=== PATIENT | female | born 1970 | race Caucasian/White ===

== ENCOUNTER 2017-08-22 19:44 | Emergency (ER) | payer SELFPAY ==
[~2017-08-22] VITALS: Ht 160 cm; Wt 85.6 kg
[~2017-08-22 19:44] MED LIST: ALKA-SELTZER P1 EAC2 PO; Levaquin PO; NOHOMEMEDS; Proventil,Ventolin 0 IH; TYLENOL EXTRA500 MG PO; predniSONE PO
[2017-08-22 20:38] LABS: HEMATOCRIT 36.4 % (36.0-46.0); MCH 24.2 PG (29.0-34.0); MCHC 31.6 G/DL (30.0-36.0); MCV 76.5 FL (83-99); RBC DIS.WIDTH-CV 18.5 % (11.8-14.6); RBC DIS.WIDTH-SD 50.6 % (39-53); RED BLOOD COUNT 4.76 M/uL (3.80-5.20); WHITE BLOOD COUNT 7.4 K/uL (4.1-10.2)
[2017-08-22 20:40] LABS: MEAN PLAT.VOLUME 11.8 uM^3 (9.5-12.4); PLATELET COUNT 375 K/uL (156-360)
[2017-08-22 20:44] LABS: CHLORIDE 107 mEq/L (99-109); POTASSIUM 3.3 mEq/L (3.7-5.4); SODIUM 138 mEq/L (136-147)
[2017-08-22 20:46] LABS: GLUCOSE 113 mg/dL (70-99)
[2017-08-22 20:47] LABS: ANION GAP 9 MEQ/L (2-14)
[2017-08-22 20:49] LABS: GFR ESTIMATE (CALCULATED) > 59 mL/min/
[2017-08-22 20:50] LABS: UREA NITROGEN (BUN) 11 mg/dL (9-23)
[2017-08-22 20:55] LABS: TROP-I INTERPRETATION NEGATIVE; TROPONIN-I < 0.01 ng/mL (0.0-0.30)
[2017-08-22 23:16] LABS: TROP-I INTERPRETATION NEGATIVE; TROPONIN-I 0.02 ng/mL (0.0-0.30)
[2017-08-23] MEDS ORDERED: PREDNISONE20 MG PO (00:29)
[2017-08-23] MEDS ORDERED: ZITHROMAX Z-PA250 MG PO (00:29)
[2017-08-23 00:46] VITALS: BP 106/67
== END 2017-08-23 00:47 | disposition home or self-care (01) ==
LOC: EME 19:44
PROVIDERS: Emergency Medicine
DX: R00.2 Palpitations (principal); J45.901 Unspecified asthma with (acute) exacerbation; E87.6 Hypokalemia; F32.9 Major depressive disorder, single episode, unspecified; Z72.0 Tobacco use
CPT/HCPCS: 71020; 80048; 84484; 85027; 93005; 94640; 94640 76; 99281; 99284; J2930; J7030

== ENCOUNTER 2017-11-11 18:09 | Emergency (ER) | payer SELFPAY ==
[~2017-11-11] VITALS: Ht 160 cm; Wt 87.5 kg
[~2017-11-11 18:09] MED LIST changes: +PREDNISONE20 MG PO; +ZITHROMAX Z-PA250 MG PO
[2017-11-11 20:29] LABS: HEMATOCRIT 33.5 % (36.0-46.0); HEMOGLOBIN 10.6 G/DL (11.9-15.5); MCH 23.7 PG (29.0-34.0); MCHC 31.6 G/DL (30.0-36.0); MCV 74.8 FL (83-99); RBC DIS.WIDTH-CV 17.3 % (11.8-14.6); RBC DIS.WIDTH-SD 46.1 % (39-53); RED BLOOD COUNT 4.48 M/uL (3.80-5.20); WHITE BLOOD COUNT 9.5 K/uL (4.1-10.2)
[2017-11-11 20:31] LABS: CHLORIDE 103 mEq/L (99-109); POTASSIUM 3.4 mEq/L (3.7-5.4); SODIUM 137 mEq/L (136-147)
[2017-11-11 20:32] LABS: GLUCOSE 112 mg/dL (70-99)
[2017-11-11 20:36] LABS: CREATININE 0.8 mg/dL (0.6-1.3); GFR ESTIMATE (CALCULATED) > 59 mL/min/
[2017-11-11 20:37] LABS: UREA NITROGEN (BUN) 16 mg/dL (9-23)
[2017-11-11 21:50] LABS: APPEARANCE CLOUDY ((CLEAR)); BILIRUBIN NEGATIVE; BLOOD NEGATIVE; COLOR YELLOW ((YELLOW)); GLUCOSE (STRIP) NEGATIVE; KETONES NEGATIVE; LEUKOCYTES NEGATIVE; NITRITE NEGATIVE; PROTEIN (STRIP) NEGATIVE; SPECIFIC GRAVITY 1.016 (1.000-1.030)
[2017-11-11 22:01] LABS: PLAT.SUFFICIENCY ADEQUATE; PLATELET COUNT 337 K/uL (156-360)
[2017-11-11 22:05] LABS: BACTERIA RARE /HPF; EPITHELIAL CELLS 2+ /HPF; MUCUS NONE SEEN /LPF; RED BLOOD CELLS NONE SEEN /HPF (0-5); WHITE BLOOD CELLS 0-5 /HPF (0-5)
[2017-11-11] MEDS ORDERED: MOBIC7.5 MG PO (22:32)
[2017-11-11] MEDS ORDERED: LIDODERM 5% P1 PATCH TD (22:32)
[2017-11-11] MEDS ORDERED: FLEXERIL10 MG PO (22:32)
[2017-11-11 22:43] VITALS: BP 111/76
== END 2017-11-11 22:58 | disposition home or self-care (01) ==
LOC: EME 18:09 → RME 18:09
PROVIDERS: Nurse Practitioner Family
DX: M54.5 Low back pain (principal); D64.9 Anemia, unspecified; R06.02 Shortness of breath; X50.0XXD Overexertion from strenuous movement or load, subsequent encounter; Y99.0 Civilian activity done for income or pay; J45.909 Unspecified asthma, uncomplicated; F17.200 Nicotine dependence, unspecified, uncomplicated; F32.9 Major depressive disorder, single episode, unspecified
CPT/HCPCS: 71020; 71275; 80048; 81003; 85027; 85379; 93005; 99281; 99284